=== PATIENT | female | born 1960 | race Caucasian/White ===

== ENCOUNTER 2017-05-26 10:53 | Outpatient (CLI) | payer MEDICARE ==
--- NOTE | 2017-05-26 13:21 | RAD ---
TWO VIEWS CHEST: HISTORY: Dyspnea. COMPARISON: 05/28/2016 FINDINGS: Lung esposito are clear. Heart and mediastinum appear unremarkable. IMPRESSION: No evidence of acute process. No interval change noted. POS: [facility]
== END 2017-05-26 10:54 | disposition home or self-care (01) ==
LOC: RAD 10:53
PROVIDERS: ATTEND Internal Medicine Critical Care Medicine
DX: R06.00 Dyspnea, unspecified (principal)
CPT/HCPCS: 71046

== ENCOUNTER 2017-08-05 09:56 | Outpatient (CLI) | payer MEDICARE ==
--- NOTE | 2017-08-05 11:27 | RAD ---
CHEST TWO VIEWS: HISTORY: Dyspnea. COMPARISON: 05/26/2017 FINDINGS: The cardiac silhouette and pulmonary vasculature are unremarkable. The mediastinum is midline. No c onfluent air space consolidation, pneumothorax, or pleural fluid. IMPRESSION: No active cardiopulmonary abnormalities demonstrated. POS: [facility]
== END 2017-08-05 09:57 | disposition home or self-care (01) ==
LOC: RAD 09:56
PROVIDERS: ATTEND Internal Medicine Critical Care Medicine
DX: R06.00 Dyspnea, unspecified (principal)
CPT/HCPCS: 71046

== ENCOUNTER 2017-08-05 14:24 | Outpatient (CLI) | payer MEDICARE, MEDICAID ==
[~2017-08-05 14:24] MED LIST: Iopamidol 370 76% 100 ML VIAL ONE
--- NOTE | 2017-08-05 16:36 | CT ---
CTA OF THE THORAX UTILIZING IV CONTRAST AND 3D REFORMATTED IMAGING 08/05/17 INDICATION: Dyspnea. Mid sternal chest pain. FINDINGS: No central or segmental pulmonary embolus is evident. There are coronary artery calcifications. No pathologically enlarged lymph nodes are evident. There are areas of subsegmental volume loss within both lower lobes. There is a peripheral ground gla ss opacity seen within the anterolateral right lower lobe on image 62 of series 2 which is nonspecifi c. No pleural effusion is evident. There is prominent fatty infiltration of the liver. No acute osseous abnormality is demonstrated. The re is scattered degenerative changes. IMPRESSION: 1. No definite central or segmental pulmonary embolus. 2. Coronary artery calcifications. 3. Scattered subsegmental volume loss within both lower lobes. 4. Patchy area of peripheral ground glass opacity within the anterolateral aspect of the right l ower lobe may reflect a small peripheral pneumonitis. 5. Small calcified granuloma within the right middle lobe and right upper lobe. 6. Fatty liver. POS: [facility]
== END 2017-08-05 14:25 | disposition home or self-care (01) ==
LOC: BICCT 14:24
PROVIDERS: ATTEND Internal Medicine Critical Care Medicine
DX: R06.00 Dyspnea, unspecified (principal); I25.10 Atherosclerotic heart disease of native coronary artery without angina pectoris; J84.10 Pulmonary fibrosis, unspecified; K76.0 Fatty (change of) liver, not elsewhere classified
CPT/HCPCS: 71275; 82565

== ENCOUNTER 2017-10-21 09:55 | Outpatient (CLI) | payer MEDICARE, MEDICAID ==
--- NOTE | 2017-10-21 15:37 | NM ---
NUCLEAR MEDICINE BONE SCAN: Date: 10/21/17 HISTORY: Sternal pain. COMPARISON: None. TECHNIQUE: Patient administered 27.10 mCi MDP. Whole body imaging performed. FINDINGS: Expected distribution of the radiotracer. There are degenerative changes in both shoulders, bilateral sternoclavicular joint spaces, bilateral knees, feet, and ankle. Additional degenerative change note d in both feet. There is periodontal disease. There is no abnormal radiotracer localization in the sternum. There is degenerative changes in the posterior right L4-L5 level with associated radiotracer uptake. IMPRESSION: 1. No abnormal localization of radiotracer in sternum. 2. Degenerative changes as defined above. There is uptake in the posterior elements on the right at L4-L5, which is presumed to be due to degenerative change. If there is concern for a more aggressive process, consider lumbar spine MRI. POS: [facility]
== END 2017-10-21 09:56 | disposition home or self-care (01) ==
LOC: NM 09:55
PROVIDERS: ATTEND Internal Medicine Critical Care Medicine
DX: R07.89 Other chest pain (principal); M19.012 Primary osteoarthritis, left shoulder; M19.011 Primary osteoarthritis, right shoulder; M19.072 Primary osteoarthritis, left ankle and foot; M19.071 Primary osteoarthritis, right ankle and foot; K05.6 Periodontal disease, unspecified
CPT/HCPCS: 78306; A9503

== ENCOUNTER 2018-01-21 14:32 | Outpatient (CLI) | payer MEDICARE, MEDICAID ==
--- NOTE | 2018-01-21 16:00 | RAD ---
TWO VIEWS OF THE RIGHT CALCANEUS: History: Right heel pain. FINDINGS: Two views of the right calcaneus shows no evidence of acute fracture or dislocation. There are small inferior and posterior calcaneal enthesophytes. IMPRESSION: Small heel spurs without acute osseous abnormality. POS: [facility]
== END 2018-01-21 14:33 | disposition home or self-care (01) ==
LOC: BICRAD 14:32
PROVIDERS: ATTEND Podiatrist
DX: M79.671 Pain in right foot (principal); M77.9 Enthesopathy, unspecified

== ENCOUNTER 2018-01-30 09:17 | Outpatient (CLI) | payer MEDICARE, MEDICAID ==
--- NOTE | 2018-01-30 12:06 | CT ---
CT ABDOMEN AND PELVIS WITH CONTRAST: Date: 01/30/18 HISTORY: R10.13 epigastric pain. COMPARISON: None. FINDINGS: The lung bases are clear. No pericardial effusion. Diffuse hepatic steatosis. Incidental note is made of a splenule. Prior cholecystectomy. No dilated loops of large or small bowel. The appendix is visualized and is no rmal. No hydronephrosis. No abnormal enhancing renal mass. Pancreas unremarkable. Adrenal glands are normal. Advanced degenerative changes of posterior elements of lower lumbar spine. IMPRESSION: No acute inflammatory process in the abdomen or pelvis. POS: [facility]
[2018-01-30] MEDS ORDERED: ISOVUE-370 76%-LOCM 1 ML ONE (16:39)
== END 2018-01-30 09:18 | disposition home or self-care (01) ==
LOC: BICCT 09:17
PROVIDERS: ATTEND Internal Medicine Gastroenterology
DX: R10.13 Epigastric pain (principal)
CPT/HCPCS: 74177

== ENCOUNTER 2018-02-10 13:18 | Outpatient (CLI) | payer MEDICARE, MEDICAID | END 2018-02-10 13:19 | disposition home or self-care (01) | LOC: BICMAMMO 13:18 | PROVIDERS: ATTEND Internal Medicine | DX: Z12.31 Encounter for screening mammogram for malignant neoplasm of breast (principal); R92.1 Mammographic calcification found on diagnostic imaging of breast; Z80.3 Family history of malignant neoplasm of breast; Z85.6 Personal history of leukemia | CPT/HCPCS: 77063; 77067 ==

== ENCOUNTER 2020-03-27 14:25 | Outpatient (CLI) | payer MEDICARE, MEDICAID ==
--- NOTE | 2020-03-27 15:28 | RAD ---
RIGHT TIBIA AND FIBULA 2 VIEWS: Date: 03/27/2020 HISTORY: Fall. COMPARISON: None. FINDINGS: No acute displaced fracture or malalignment. Ankle evaluation is limited. Moderate calcaneal spur. IMPRESSION: No acute osseous abnormality. POS: [facility]
--- NOTE | 2020-03-27 15:30 | RAD ---
RIGHT FOOT 3 VIEWS: Date: 03/27/2020 HISTORY: Injury from fall. Pain over fifth metatarsal region. FINDINGS: Mild degenerative and osteoarthrosis change. No evidence for acute fracture or dislocation. Calcaneal , plantar, and Achilles enthesophytes. IMPRESSION: Osteoarthrosis and degenerative change without acute fracture or dislocation. POS: [facility]
--- NOTE | 2020-03-27 15:31 | RAD ---
RIGHT ANKLE 3 VIEWS: Date: 03/27/2020 HISTORY: Injury with pain. FINDINGS: Mild soft tissue swelling laterally. Degenerative changes at the tibiotalar joint. Spurring from the plantar calcaneus. No evidence of acute fracture. IMPRESSION: No evidence of fracture. POS: [facility]
== END 2020-03-27 14:26 | disposition home or self-care (01) ==
LOC: BICRAD 14:25
PROVIDERS: ATTEND Internal Medicine
DX: M79.671 Pain in right foot (principal); M19.071 Primary osteoarthritis, right ankle and foot; W19.XXXA Unspecified fall, initial encounter

== ENCOUNTER 2020-03-31 11:07 | Outpatient (CLI) | payer MEDICARE, MEDICAID ==
--- NOTE | 2020-03-31 12:32 | MMO ---
Bilateral MAMMO Bilat Screen [facility]. CLINICAL HISTORY: Patient is 59 years old and is seen for screening. The patient has the following family history of breast cancer: maternal grandmother. The patient has a history of leukemia in 2013. VIEWS: The views performed were: bilateral craniocaudal with tomosynthesis; bilateral mediolateral oblique; bilateral mediolateral oblique with tomosynthesis; and cleavage view. FILMS COMPARED: The present examination has been compared to prior imaging studies performed at [facility] on 06/02/2013, 01/31/2015, 11/14/2016 and 02/10/2018. This study has been interpreted with the assistance of computer-aided detection. MAMMOGRAM FINDINGS: There are scattered fibroglandular densities. Finding 1: There are stable benign appearing calcifications seen in both breasts. There are also vascular calcifications. Finding 2: There is a fat containing mass seen in the upper-outer region of the left breast. This is compatible with the hematoma reported by the patient in this location. There are no suspicious masses, suspicious calcifications, or new areas of architectural distortion. IMPRESSION: THERE IS NO MAMMOGRAPHIC EVIDENCE OF MALIGNANCY. A ROUTINE FOLLOW-UP MAMMOGRAM IN 1 YEAR IS RECOMMENDED. THE RESULTS OF THIS EXAM WERE SENT TO THE PATIENT. ACR BI-RADS Category 2 - Benign finding MAMMOGRAPHY NOTE: 1. A negative mammogram report should not delay a biopsy if a dominant of clinically suspicious mass is present. 2. Approximately 10% to 15% of breast cancers are not detected by mammography. 3. Adenosis and dense breasts may obscure an underlying neoplasm. Reported by: ARTURO PULIDO MD Electonically Signed: [id number]
== END 2020-03-31 11:08 | disposition home or self-care (01) ==
LOC: BICMAMMO 11:07
PROVIDERS: ATTEND Internal Medicine
DX: Z12.31 Encounter for screening mammogram for malignant neoplasm of breast (principal); Z85.6 Personal history of leukemia; Z80.3 Family history of malignant neoplasm of breast
CPT/HCPCS: 77063; 77067

== ENCOUNTER 2021-04-06 00:58 | Observation (INO) | payer MEDICARE, OTHER ==
[2021-04-06 01:54] VITALS: BMI 39.2
[2021-04-06] MEDS ORDERED: Ondansetron PF 4 MG/2 ML Vial IVP PRN (02:11)
[2021-04-06 04:48] LABS: Anion Gap 11 mmol/L (10-20); BUN (Urea Nitrogen) 18 mg/dL (9.8-20.1); Calc. Creatinine Clearance 109 mL/min (70-130); Calcium 9.1 mg/dL (7.8-10.44); Carbon Dioxide 26 mmol/L (23-31); Chloride 107 mmol/L (98-107); Glucose 216 mg/dL (80-115); Potassium 3.9 mmol/L (3.5-5.1); Sodium 140 mmol/L (136-145)
[2021-04-06] MEDS ORDERED: traMADol HCl 50 MG TAB PO PRN (05:42)
[2021-04-06] MEDS: Acetaminophen 325 MG TAB PO PRN ×2 (06:12→13:20)
[2021-04-06 06:38] LABS: Platelet Count 16 thou/uL (130-400); White Blood Cell (WBC) Count 0.6 thou/uL (4.8-10.8)
[2021-04-06 06:44] LABS: Anisocytosis SLIGHT = 6-15 cells (100X) (0-5/hpf); Hemoglobin 6.9 g/dL (12.0-16.0); Lymphocytes 100 % (21-51); MDiff Complete? YES; Mean Corpuscular HGB CONC 33.3 g/dL (32.0-36.0); Mean Corpuscular Hemoglobin 33.5 pg (27.0-31.0); Mean Platelet Volume 11.9 fL (7.4-10.4); Ovalocytes SLIGHT = 2-5 cells (100X) (0-1/hpf); Platelet Morphology Comment Appears Decreased; RBC Distribution Width 14.9 % (11.5-14.5); Red Blood Cell (RBC) Count 2.07 mill/uL (4.20-5.40); Reflex for Review?? YES
[2021-04-06] MEDS ORDERED: Melatonin 3 MG TAB PO PRN (07:28)
[2021-04-06] MEDS ORDERED: Doxycycline 100 MG CAP PO SCH (09:00)
[2021-04-06 10:31] LABS: Iron 192 ug/dL (50-170); Iron Binding Capacity, Total 186 mcg/dL (265-497)
[2021-04-06 10:56] LABS: Ferritin 1039.23 ng/mL (10-291)
[2021-04-06] MEDS ORDERED: ALPRAZolam 0.5 MG TAB PO PRN (12:37)
[2021-04-06] MEDS ORDERED: Furosemide 20 MG TAB PO PRN (12:37)
[2021-04-06] MEDS ORDERED: Iopamidol-370 76% 500 ML 1 ML ONE (14:28)
[2021-04-06 18:24] VITALS: BP 136/65; TEMP 98.6
[2021-04-07] MEDS ORDERED: Levothyroxine Sodium 100 MCG TAB PO SCH (06:00)
[2021-04-07] MEDS ORDERED: Cholecalciferol 1,000 UNITS (25 MCG) TAB PO SCH (09:00)
[2021-04-07] MEDS ORDERED: Folic Acid 1 MG TAB PO SCH (09:00)
[2021-04-09] MEDS ORDERED: Levothyroxine Sodium 50 MCG TAB PO SCH (06:00)
== END 2021-04-06 20:04 | disposition home or self-care (01) ==
LOC: SURG A 00:59
PROVIDERS: ADMIT Internal Medicine; ATTEND Family Medicine
DX: D61.818 Other pancytopenia (principal); D64.9 Anemia, unspecified; D70.9 Neutropenia, unspecified; R06.00 Dyspnea, unspecified; C95.90 Leukemia, unspecified not having achieved remission; J44.9 Chronic obstructive pulmonary disease, unspecified; J02.0 Streptococcal pharyngitis; K21.9 Gastro-esophageal reflux disease without esophagitis; E03.9 Hypothyroidism, unspecified; Z20.822 Contact with and (suspected) exposure to COVID-19; Z79.890 Hormone replacement therapy; Z79.899 Other long term (current) drug therapy; Z88.0 Allergy status to penicillin; Z88.5 Allergy status to narcotic agent; Z87.891 Personal history of nicotine dependence
CPT/HCPCS: 36430; 71275; 80048; 82607; 82728; 82746; 83036; 83540; 83550; 85025; 85379; 86850; 86900; 86901; 86920; 93306; P9016; P9035; 36415; G0378; Q9967